=== PATIENT | female | born 1985 | race African-American/Black ===

== ENCOUNTER 2024-03-05 13:21 | Inpatient (IN) | payer MEDICAID ==
[~2024-03-05] VITALS: Ht 160 cm; Wt 65.8 kg
[2024-03-05] MEDS ORDERED: HALOPERIDOL 5 MG TABLET PO PRN (13:45)
[2024-03-05] MEDS ORDERED: LORazepam 2 MG TABLET PO PRN (13:45)
[2024-03-05] MEDS ORDERED: PNEUMOCOCCAL VACCINE POLYVALENT 0.5 ML SYRINGE [PPSV23] IM. ONE (17:15)
[2024-03-05 19:23] VITALS: BP 110/77; PULSE 82; RESP 18; TEMP 98.2; O2SAT 99
[2024-03-06 05:36] VITALS: BP 116/76; PULSE 67; RESP 17; TEMP 97.7; O2SAT 98
[2024-03-06 08:15] LABS: BASOPHILS % (AUTO) 0.5 % (0.0-2.0); EOSINOPHILS % (AUTO) 2.1 % (1.0-6.0); HEMATOCRIT 35.4 % (36-46); HEMOGLOBIN 11.4 g/dL (12.0-16.0); LYMPHOCYTES # (AUTO) 1.7 K/uL (1.0-4.8); LYMPHOCYTES % (AUTO) 34.2 % (22.0-44.0); MEAN CORPUSCULAR HEMOGLOBIN 29.6 pg (26.0-34.0); MEAN CORPUSCULAR HGB CONC 32.2 G/dL (31.0-37.0); MEAN CORPUSCULAR VOLUME 92 fL (80-100); MONOCYTES # (AUTO) 0.7 K/uL (0.1-1.0); MONOCYTES % (AUTO) 13.9 % (2.0-9.0); NEUTROPHILS # (AUTO) 2.5 K/uL (1.8-7.7); NEUTROPHILS % (AUTO) 49.3 % (40.0-70.0); PLATELET COUNT (AUTO) 291 K/uL (150-450); RED BLOOD CELL COUNT(AUTO) 3.85 MIL/uL (4.00-5.20); RED CELL DISTRIBUTION WIDTH 18.1 % (11.5-14.5)
[2024-03-06 08:22] VITALS: BP 116/78; PULSE 99; RESP 18; TEMP 98.2; O2SAT 100
[2024-03-06 08:42] LABS: ALANINE AMINOTRANSFERASE 17 U/L (12-78); ALBUMIN 3.9 g/dL (3.4-5.0); ALKALINE PHOSPHATASE 61 U/L (46-116); ANION GAP 9 mmol/L (8-16); ASPARTATE AMINOTRANSFERASE 16 U/L (15-37); BILIRUBIN,TOTAL 0.6 mg/dL (0.1-1.0); CALCIUM, TOTAL 9.5 mg/dL (8.8-10.5); CARBON DIOXIDE 26 mmol/L (22-29); CHLORIDE 105 mmol/L (98-107); CHOL/HDL RATIO 1.9 (3.9-5.7); CHOLESTEROL 163 mg/dL (131-200); CREATININE 0.67 mg/dL (0.60-1.30); FREE T4 (FREE THYROXINE) 1.03 ng/dL (0.76-1.46); GLOMERULAR FILTR. RATE CALC > 60 mL/min (>60); GLUCOSE,RANDOM 88 mg/dL (70-110); HDL CHOLESTEROL 85 mg/dL (40-60); LDL CHOL (CALC.) 73 mg/dL (0-130); POTASSIUM 3.9 mmol/L (3.5-5.1); SODIUM SERUM 140 mmol/L (136-145); THYROID STIMULATING HORMONE 1.69 uIU/mL (0.36-3.74); TOTAL PROTEIN, SERUM 8.3 g/dL (6.4-8.2); TRIGLYCERIDES 25 mg/dL (15-150); UREA NITROGEN, BLOOD 15 mg/dL (7-18)
[2024-03-06 08:48] LABS: VALPROIC ACID < 3 mcg/mL (50-100)
[2024-03-06 08:49] LABS: HEMOGLOBIN A1C 4.6 % (3.8-5.6)
[2024-03-06] MEDS ORDERED: DIVA-112 PO (11:18)
[2024-03-06] MEDS ORDERED: BUPR-49 PO (11:18)
[2024-03-06] MEDS ORDERED: OLAN10TA74 PO (11:18)
[2024-03-06] MEDS: DIVALPROEX SODIUM 500 MG DR TABLET PO SCH (11:30)
[2024-03-06] MEDS: BuPROPion HCL XL 150 MG ER TABLET PO SCH (12:37)
[2024-03-06] MEDS ORDERED: ALBUTEROL SULFATE HFA 90 MCG/PUFF 8 GM INHALER IH PRN (16:00)
[2024-03-06] MEDS ORDERED: PETROLATUM,WHITE 28 GM JELLY TP PRN (16:00)
[2024-03-06] MEDS ORDERED: MAG HYDROX/ALUMINUM HYD/SIMETH ES 30 ML SUSPENSION UDCUP PO PRN (16:00)
[2024-03-06] MEDS ORDERED: GuaiFENesin/D-METHORPHAN [SUGAR-FREE] 200-20MG/10 ML SYRUP UDCUP PO PRN (16:00)
[2024-03-06] MEDS ORDERED: MAGNESIUM HYDROXIDE SUSPENSION 30 ML UDCUP PO PRN (16:00)
[2024-03-06] MEDS ORDERED: LOPERAMIDE HCL 2 MG CAPSULE PO PRN (16:00)
[2024-03-06] MEDS ORDERED: ACETAMINOPHEN 325 MG TABLET PO PRN (16:00)
[2024-03-06] MEDS ORDERED: ONDANSETRON HCL 4 MG TABLET PO PRN (16:00)
[2024-03-06] MEDS ORDERED: NICOTINE 14 MG/24 HOUR PATCH TD PRN (16:00)
[2024-03-06] MEDS ORDERED: IBUPROFEN 400 MG TABLET PO PRN (16:00)
[2024-03-06] MEDS ORDERED: CloNIDine HCL 0.1 MG TABLET PO PRN (16:00)
[2024-03-06] MEDS: OLANZapine 10 MG TABLET PO SCH (21:00)
[2024-03-06 23:21] VITALS: BP 118/70; PULSE 94; RESP 16; TEMP 98; O2SAT 100
[2024-03-07 08:38] VITALS: BP 115/75; PULSE 76; RESP 17; TEMP 98.8; O2SAT 99
[2024-03-07 21:00] VITALS: BP 100/67; PULSE 82; RESP 18; TEMP 98.3; O2SAT 89
[2024-03-07] MEDS: DOCUSATE SODIUM 100 MG CAPSULE PO PRN (21:24)
[2024-03-08] MEDS: ZOLPIDEM TARTRATE 10 MG TABLET PO PRN (00:40)
[2024-03-08 10:24] VITALS: BP 111/67; PULSE 84; RESP 16; TEMP 97.5; O2SAT 96
[2024-03-08 20:24] VITALS: BP 112/66; PULSE 90; RESP 18; TEMP 98.8; O2SAT 99
[2024-03-09 08:11] VITALS: BP 107/66; PULSE 64; RESP 18; TEMP 97.9; O2SAT 97
[2024-03-09 20:29] VITALS: BP 109/69; PULSE 71; RESP 18; TEMP 97.1; O2SAT 100
[2024-03-10 13:39] VITALS: BP 111/70; PULSE 67; RESP 16; TEMP 96; O2SAT 94
[2024-03-10 21:10] VITALS: BP 120/84; PULSE 85; RESP 18; TEMP 97.6; O2SAT 98
[2024-03-11 08:38] VITALS: BP 110/70; PULSE 74; RESP 18; TEMP 98.1; O2SAT 98
[2024-03-11] MEDS ORDERED: DOCUSATE SODIUM 250 MG CAPSULE PO PRN (17:00)
[2024-03-11 20:49] VITALS: BP 110/62; PULSE 100; RESP 19; TEMP 97.8; O2SAT 99
[2024-03-12 09:07] VITALS: BP 121/71; PULSE 80; RESP 17; TEMP 97.7; O2SAT 100
[2024-03-12 20:16] VITALS: BP 122/75; RESP 16; TEMP 97.9; O2SAT 100
[2024-03-13 08:35] VITALS: BP 101/74; PULSE 79; RESP 17; TEMP 97.3; O2SAT 100
[2024-03-13 20:19] VITALS: BP 108/67; PULSE 66; RESP 18; TEMP 97.2; O2SAT 99
[2024-03-14 08:20] VITALS: BP 109/67; PULSE 94; RESP 18; TEMP 98.2; O2SAT 98
== END 2024-03-14 16:10 | disposition home or self-care (01) | DRG 750 ==
LOC: B2S 13:47
PROVIDERS: ADMIT Psychiatry & Neurology Psychiatry; ATTEND Psychiatry & Neurology Psychiatry
PROC: GZHZZZZ Group Psychotherapy (ICD-10-PCS; principal; 2024-03-06)
PROC: GZ51ZZZ Individual Psychotherapy, Behavioral (ICD-10-PCS; 2024-03-06)
DX: F25.1 Schizoaffective disorder, depressive type (principal); R45.851 Suicidal ideations; F41.9 Anxiety disorder, unspecified; Z59.00 Homelessness unspecified; G47.00 Insomnia, unspecified; D64.9 Anemia, unspecified; Z79.899 Other long term (current) drug therapy
CPT/HCPCS: 80053; 80061; 80164; 83036; 84439; 84443; 85025

== ENCOUNTER 2024-05-17 21:05 | Emergency (ER) | payer MEDICAID ==
[~2024-05-17] VITALS: Ht 160 cm; Wt 68.0 kg
[~2024-05-17 21:05] MED LIST: BUPR-49 PO; DIVA-112 PO; OLAN10TA74 PO
[2024-05-17 22:00] VITALS: TEMP 98
[2024-05-17 22:39] VITALS: BP 134/78; PULSE 74; RESP 16
[2024-05-17 23:09] LABS: BASOPHILS % (AUTO) 0.5 % (0.0-2.0); EOSINOPHILS % (AUTO) 1.6 % (1.0-6.0); HEMATOCRIT 35.1 % (36-46); LYMPHOCYTES # (AUTO) 1.9 K/uL (1.0-4.8); LYMPHOCYTES % (AUTO) 38.8 % (22.0-44.0); MEAN CORPUSCULAR HGB CONC 31.3 G/dL (31.0-37.0); MEAN CORPUSCULAR VOLUME 90 fL (80-100); MONOCYTES # (AUTO) 0.5 K/uL (0.1-1.0); MONOCYTES % (AUTO) 10.5 % (2.0-9.0); NEUTROPHILS # (AUTO) 2.4 K/uL (1.8-7.7); NEUTROPHILS % (AUTO) 48.6 % (40.0-70.0); PLATELET COUNT (AUTO) 266 K/uL (150-450); RED BLOOD CELL COUNT(AUTO) 3.92 MIL/uL (4.00-5.20); RED CELL DISTRIBUTION WIDTH 21.1 % (11.5-14.5); WHITE BLOOD COUNT (AUTO) 4.9 K/uL (4.5-11.0)
[2024-05-17 23:19] LABS: ANION GAP 4 mmol/L (8-16); CALCIUM, TOTAL 8.9 mg/dL (8.8-10.5); CARBON DIOXIDE 28 mmol/L (22-29); CHLORIDE 104 mmol/L (98-107); CREATININE 0.66 mg/dL (0.60-1.30); GLOMERULAR FILTR. RATE CALC > 60 mL/min (>60); GLUCOSE,RANDOM 90 mg/dL (70-110); POTASSIUM 3.6 mmol/L (3.5-5.1); SODIUM SERUM 136 mmol/L (136-145); UREA NITROGEN, BLOOD 13 mg/dL (7-18)
[2024-05-17 23:25] LABS: ALCOHOL, BLOOD (SERUM) < 3 mg/dL (0-10)
[2024-05-18] MEDS: LORazepam 1 MG TABLET PO ONE (01:14)
[2024-05-18] MEDS: OLANZapine 5 MG TABLET PO ONE (01:14)
== END 2024-05-18 02:06 | disposition home or self-care (01) ==
LOC: EMS 21:05
DX: F41.9 Anxiety disorder, unspecified (principal); F20.9 Schizophrenia, unspecified
CPT/HCPCS: 99283; 80048; 84703; 85025; 36415; G0480

== ENCOUNTER 2024-07-17 18:26 | Emergency (ER) | payer MEDICAID ==
[~2024-07-17] VITALS: Ht 154.9 cm; Wt 63.6 kg
[2024-07-17 18:48] VITALS: TEMP 98.1
[2024-07-17] MEDS ORDERED: IBUP-1492 PO (22:38)
[2024-07-17] MEDS: IBUPROFEN 600 MG TABLET PO ONE (22:44)
[2024-07-17 22:45] VITALS: BP 112/67; PULSE 77; RESP 15; O2SAT 97
== END 2024-07-17 23:18 | disposition home or self-care (01) ==
LOC: EMS 18:26
DX: S63.502A Unspecified sprain of left wrist, initial encounter (principal); X50.9XXA Other and unspecified overexertion or strenuous movements or postures, initial encounter; Y93.89 Activity, other specified; Y92.89 Other specified places as the place of occurrence of the external cause; Y99.8 Other external cause status
CPT/HCPCS: 99283

== ENCOUNTER 2024-07-26 20:04 | Emergency (ER) | payer MEDICAID ==
[~2024-07-26] VITALS: Ht 160 cm; Wt 70.5 kg
[~2024-07-26 20:04] MED LIST changes: +IBUP-1492 PO
[2024-07-26 20:08] VITALS: BP 115/66; PULSE 76; RESP 18; TEMP 98.7; O2SAT 100
[2024-07-26 20:20] LABS: COVID AG,FIA SOURCE NASAL SWAB
[2024-07-26 20:42] LABS: SARS-COV2 (COVID) ANTIGEN,FIA Negative (Negative)
[2024-07-26 20:44] LABS: INFLUENZA TYPE A NEGATIVE FOR TYPE A (NEGATIVE); INFLUENZA TYPE B NEGATIVE FOR TYPE B (NEGATIVE)
== END 2024-07-26 21:09 | disposition home or self-care (01) ==
LOC: EMS 20:04
DX: J06.9 Acute upper respiratory infection, unspecified (principal); R53.83 Other fatigue; R09.81 Nasal congestion; Z79.899 Other long term (current) drug therapy; Z20.822 Contact with and (suspected) exposure to COVID-19
CPT/HCPCS: 87804; 99283

== ENCOUNTER 2024-08-30 04:34 | Emergency (ER) | payer MEDICAID ==
[~2024-08-30] VITALS: Ht 165.1 cm; Wt 70.5 kg
[2024-08-30 05:04] VITALS: TEMP 98.1
[2024-08-30 05:20] LABS: BASOPHILS % (AUTO) 1.1 % (0.0-2.0); EOSINOPHILS % (AUTO) 1.3 % (1.0-6.0); HEMATOCRIT 35.7 % (36-46); HEMOGLOBIN 11.3 g/dL (12.0-16.0); LYMPHOCYTES # (AUTO) 1.3 K/uL (1.0-4.8); LYMPHOCYTES % (AUTO) 32.5 % (22.0-44.0); MEAN CORPUSCULAR HEMOGLOBIN 28.8 pg (26.0-34.0); MEAN CORPUSCULAR HGB CONC 31.8 G/dL (31.0-37.0); MEAN CORPUSCULAR VOLUME 91 fL (80-100); MONOCYTES # (AUTO) 0.5 K/uL (0.1-1.0); MONOCYTES % (AUTO) 11.9 % (2.0-9.0); NEUTROPHILS # (AUTO) 2.1 K/uL (1.8-7.7); NEUTROPHILS % (AUTO) 53.2 % (40.0-70.0); PLATELET COUNT (AUTO) 292 K/uL (150-450); RED BLOOD CELL COUNT(AUTO) 3.93 MIL/uL (4.00-5.20); RED CELL DISTRIBUTION WIDTH 16.8 % (11.5-14.5)
[2024-08-30 05:31] LABS: ANION GAP 7 mmol/L (8-16); CALCIUM, TOTAL 9.3 mg/dL (8.8-10.5); CARBON DIOXIDE 25 mmol/L (22-29); CHLORIDE 104 mmol/L (98-107); CREATININE 0.76 mg/dL (0.60-1.30); GLOMERULAR FILTR. RATE CALC > 60 mL/min (>60); GLUCOSE,RANDOM 96 mg/dL (70-110); POTASSIUM 4.1 mmol/L (3.5-5.1); SODIUM SERUM 136 mmol/L (136-145); UREA NITROGEN, BLOOD 20 mg/dL (7-18)
[2024-08-30 05:43] LABS: ALCOHOL, BLOOD (SERUM) < 3 mg/dL (0-10)
[2024-08-30] MEDS: LORazepam 1 MG TABLET PO ONE (06:01)
[2024-08-30] MEDS: HALOPERIDOL 5 MG TABLET PO ONE (06:01)
[2024-08-30] MEDS ORDERED: BUPR-49 PO (06:45)
[2024-08-30 07:19] VITALS: BP 118/77; PULSE 71; RESP 15; O2SAT 99
== END 2024-08-30 07:19 | disposition home or self-care (01) ==
LOC: EMS 04:35
DX: F41.9 Anxiety disorder, unspecified (principal); F32.A Depression, unspecified; Z79.899 Other long term (current) drug therapy
CPT/HCPCS: 99283; 80048; 84703; 85025; 36415; G0480

== ENCOUNTER 2024-09-05 07:18 | Emergency (ER) | payer MEDICAID ==
[~2024-09-05] VITALS: Ht 162.6 cm; Wt 70.5 kg
[2024-09-05 07:24] VITALS: TEMP 97.6
[2024-09-05] MEDS: LORazepam 1 MG TABLET PO ONE (07:43)
[2024-09-05] MEDS: HydrOXYzine HCL 25 MG TABLET PO ONE (07:43)
[2024-09-05 07:57] LABS: BASOPHILS % (AUTO) 0.6 % (0.0-2.0); EOSINOPHILS % (AUTO) 1.1 % (1.0-6.0); HEMATOCRIT 31.9 % (36-46); HEMOGLOBIN 10.3 g/dL (12.0-16.0); LYMPHOCYTES # (AUTO) 1.2 K/uL (1.0-4.8); LYMPHOCYTES % (AUTO) 23.8 % (22.0-44.0); MEAN CORPUSCULAR HEMOGLOBIN 29.1 pg (26.0-34.0); MEAN CORPUSCULAR HGB CONC 32.2 G/dL (31.0-37.0); MEAN CORPUSCULAR VOLUME 90 fL (80-100); MONOCYTES # (AUTO) 0.5 K/uL (0.1-1.0); MONOCYTES % (AUTO) 10.7 % (2.0-9.0); NEUTROPHILS # (AUTO) 3.1 K/uL (1.8-7.7); NEUTROPHILS % (AUTO) 63.8 % (40.0-70.0); PLATELET COUNT (AUTO) 275 K/uL (150-450); RED BLOOD CELL COUNT(AUTO) 3.53 MIL/uL (4.00-5.20); RED CELL DISTRIBUTION WIDTH 17.1 % (11.5-14.5); WHITE BLOOD COUNT (AUTO) 4.9 K/uL (4.5-11.0)
[2024-09-05 08:10] LABS: ANION GAP 8 mmol/L (8-16); CALCIUM, TOTAL 8.7 mg/dL (8.8-10.5); CARBON DIOXIDE 24 mmol/L (22-29); CHLORIDE 107 mmol/L (98-107); CREATININE 0.72 mg/dL (0.60-1.30); GLOMERULAR FILTR. RATE CALC > 60 mL/min (>60); GLUCOSE,RANDOM 95 mg/dL (70-110); POTASSIUM 3.4 mmol/L (3.5-5.1); SODIUM SERUM 139 mmol/L (136-145); UREA NITROGEN, BLOOD 15 mg/dL (7-18)
[2024-09-05 08:16] LABS: ALANINE AMINOTRANSFERASE 26 U/L (12-78); ALBUMIN 3.1 g/dL (3.4-5.0); ALKALINE PHOSPHATASE 55 U/L (46-116); ASPARTATE AMINOTRANSFERASE 18 U/L (15-37); BILIRUBIN,TOTAL 0.2 mg/dL (0.1-1.0); LIPASE 49 U/L (16-77); TOTAL PROTEIN, SERUM 6.9 g/dL (6.4-8.2)
[2024-09-05 08:20] LABS: TROPONIN I-HIGH SENSITIVITY Less Than 4 ng/L (<51)
[2024-09-05] MEDS: POTASSIUM CHLORIDE 20 MEQ ER TABLET PO ONE (09:02)
[2024-09-05] MEDS: DICYCLOMINE HCL 10 MG CAPSULE PO ONE (09:05)
[2024-09-05 10:27] VITALS: BP 124/85; PULSE 82; RESP 16; O2SAT 97
== END 2024-09-05 10:28 | disposition home or self-care (01) ==
LOC: EMS 07:26
DX: L29.9 Pruritus, unspecified (principal); F41.9 Anxiety disorder, unspecified; E87.6 Hypokalemia; F20.9 Schizophrenia, unspecified; Z79.899 Other long term (current) drug therapy
CPT/HCPCS: 80053; 83690; 84484; 84703; 85025; 93005; 99284

== ENCOUNTER 2024-09-08 07:18 | Emergency (ER) | payer MEDICAID ==
[~2024-09-08] VITALS: Ht 157.5 cm; Wt 79.0 kg
[2024-09-08 07:26] VITALS: BP 134/92; PULSE 84; RESP 18; TEMP 98; O2SAT 100
[2024-09-08] MEDS ORDERED: SERT-158 PO (07:48)
[2024-09-08] MEDS: SERTRALINE HCL 50 MG TABLET PO ONE (08:34)
[2024-09-08] MEDS: LORazepam 1 MG TABLET PO ONE (08:34)
== END 2024-09-08 08:57 | disposition home or self-care (01) ==
LOC: EMS 07:18
DX: F41.9 Anxiety disorder, unspecified (principal); F32.A Depression, unspecified
CPT/HCPCS: 99284; Z7502; Z7610

== ENCOUNTER 2024-09-11 06:59 | Emergency (ER) | payer MEDICAID ==
[~2024-09-11] VITALS: Ht 167.6 cm; Wt 77.2 kg
[~2024-09-11 06:59] MED LIST changes: -DIVA-112 PO; -IBUP-1492 PO; -OLAN10TA74 PO; +SERT-158 PO
[2024-09-11 10:34] LABS: BASOPHILS % (AUTO) 0.9 % (0.0-2.0); EOSINOPHILS % (AUTO) 1.3 % (1.0-6.0); HEMATOCRIT 36.1 % (36-46); HEMOGLOBIN 11.2 g/dL (12.0-16.0); LYMPHOCYTES % (AUTO) 40.3 % (22.0-44.0); MEAN CORPUSCULAR HEMOGLOBIN 28.1 pg (26.0-34.0); MEAN CORPUSCULAR VOLUME 91 fL (80-100); MONOCYTES # (AUTO) 0.6 K/uL (0.1-1.0); NEUTROPHILS # (AUTO) 2.3 K/uL (1.8-7.7); NEUTROPHILS % (AUTO) 45.5 % (40.0-70.0); PLATELET COUNT (AUTO) 327 K/uL (150-450); RED BLOOD CELL COUNT(AUTO) 3.99 MIL/uL (4.00-5.20); RED CELL DISTRIBUTION WIDTH 16.7 % (11.5-14.5); WHITE BLOOD COUNT (AUTO) 5.1 K/uL (4.5-11.0)
[2024-09-11 10:44] LABS: ANION GAP 9 mmol/L (8-16); CALCIUM, TOTAL 8.9 mg/dL (8.8-10.5); CARBON DIOXIDE 23 mmol/L (22-29); CHLORIDE 105 mmol/L (98-107); CREATININE 0.69 mg/dL (0.60-1.30); GLOMERULAR FILTR. RATE CALC > 60 mL/min (>60); GLUCOSE,RANDOM 87 mg/dL (70-110); POTASSIUM 3.8 mmol/L (3.5-5.1); SODIUM SERUM 137 mmol/L (136-145); UREA NITROGEN, BLOOD 14 mg/dL (7-18)
[2024-09-11 10:54] LABS: COVID AG,FIA SOURCE NPH
[2024-09-11 10:58] LABS: ALCOHOL, BLOOD (SERUM) < 3 mg/dL (0-10)
[2024-09-11 10:59] LABS: HCG,QUANTITATIVE < 1 mIU/mL (0-6); THYROID STIMULATING HORMONE 2.21 uIU/mL (0.36-3.74)
[2024-09-11 11:19] LABS: SARS-COV2 (COVID) ANTIGEN,FIA Negative (Negative)
[2024-09-11 13:02] LABS: APPEARANCE,URINE CLEAR (CLEAR); BILIRUBIN,URINE NEGATIVE (NEGATIVE); COLOR,URINE LIGHT YELLOW (YELLOW); GLUCOSE, URINE (UA) NEGATIVE (NEGATIVE); KETONES,URINE NEGATIVE (NEGATIVE); LEUKOCYTE ESTERASE ,URINE NEGATIVE (NEGATIVE); NITRATE,URINE NEGATIVE (NEGATIVE); OCCULT BLOOD,URINE NEGATIVE (NEGATIVE); PROTEIN,URINE TRACE mg/dL (NEGATIVE); SPECIFIC GRAVITIY, URINE 1.034 (1.003-1.030); UROBILINOGEN,URINE <=1.0 mg/dL (<=1.0)
[2024-09-11 13:10] LABS: ALCOHOL, URINE DRUG SCREEN NEGATIVE (NEGATIVE); AMPHET/METH SCREEN,URINE NEGATIVE (NEGATIVE); BARBITURATE SCREEN, URINE NEGATIVE (NEGATIVE); BENZODIAZEPINES SCREEN,URINE NEGATIVE (NEGATIVE); CANNABINOID SCREEN,URINE NEGATIVE (NEGATIVE); COCAINE SCREEN,URINE NEGATIVE (NEGATIVE); METHADONE SCREEN, URINE NEGATIVE (NEGATIVE); OPIATE SCREEN,URINE NEGATIVE (NEGATIVE); PHENCYCLIDINE SCREEN,URINE NEGATIVE (NEGATIVE)
[2024-09-11 13:52] VITALS: BP 112/74; PULSE 74; RESP 17; TEMP 97.5; O2SAT 99
== END 2024-09-11 14:12 | disposition home or self-care (01) ==
LOC: EMS 07:02
DX: F41.9 Anxiety disorder, unspecified (principal); F32.A Depression, unspecified; Z20.822 Contact with and (suspected) exposure to COVID-19
CPT/HCPCS: 99283; 87426; 80048; 84443; 84702; 85025; 36415; 80307; 81003; G0480

== ENCOUNTER 2024-10-27 06:08 | Emergency (ER) | payer MEDICAID ==
[~2024-10-27] VITALS: Ht 162.6 cm; Wt 75.0 kg
[2024-10-27 07:59] LABS: BASOPHILS % (AUTO) 0.7 % (0.0-2.0); EOSINOPHILS % (AUTO) 0.8 % (1.0-6.0); HEMATOCRIT 33.9 % (36-46); HEMOGLOBIN 10.8 g/dL (12.0-16.0); LYMPHOCYTES # (AUTO) 1.2 K/uL (1.0-4.8); LYMPHOCYTES % (AUTO) 30.1 % (22.0-44.0); MEAN CORPUSCULAR HEMOGLOBIN 28.4 pg (26.0-34.0); MEAN CORPUSCULAR HGB CONC 31.8 G/dL (31.0-37.0); MEAN CORPUSCULAR VOLUME 90 fL (80-100); MONOCYTES # (AUTO) 0.4 K/uL (0.1-1.0); MONOCYTES % (AUTO) 10.3 % (2.0-9.0); NEUTROPHILS # (AUTO) 2.3 K/uL (1.8-7.7); NEUTROPHILS % (AUTO) 58.1 % (40.0-70.0); PLATELET COUNT (AUTO) 330 K/uL (150-450); RED BLOOD CELL COUNT(AUTO) 3.79 MIL/uL (4.00-5.20)
[2024-10-27 08:17] LABS: ANION GAP 8 mmol/L (8-16); CALCIUM, TOTAL 9.1 mg/dL (8.8-10.5); CARBON DIOXIDE 28 mmol/L (22-29); CHLORIDE 101 mmol/L (98-107); CREATININE 0.68 mg/dL (0.60-1.30); GLOMERULAR FILTR. RATE CALC > 60 mL/min (>60); GLUCOSE,RANDOM 90 mg/dL (70-110); POTASSIUM 3.8 mmol/L (3.5-5.1); SODIUM SERUM 137 mmol/L (136-145); UREA NITROGEN, BLOOD 7 mg/dL (7-18)
[2024-10-27 08:21] LABS: ALCOHOL, BLOOD (SERUM) < 3 mg/dL (0-10)
[2024-10-27 12:15] LABS: COVID AG,FIA SOURCE NASAL SWAB
[2024-10-27 12:21] VITALS: BP 132/83; PULSE 84; RESP 18; TEMP 97.8; O2SAT 100
[2024-10-27 12:27] LABS: APPEARANCE,URINE CLEAR (CLEAR); BILIRUBIN,URINE NEGATIVE (NEGATIVE); COLOR,URINE LIGHT YELLOW (YELLOW); GLUCOSE, URINE (UA) NEGATIVE (NEGATIVE); KETONES,URINE NEGATIVE (NEGATIVE); LEUKOCYTE ESTERASE ,URINE NEGATIVE (NEGATIVE); NITRATE,URINE NEGATIVE (NEGATIVE); OCCULT BLOOD,URINE NEGATIVE (NEGATIVE); PROTEIN,URINE NEGATIVE (NEGATIVE); SPECIFIC GRAVITIY, URINE 1.021 (1.003-1.030); UROBILINOGEN,URINE <=1.0 mg/dL (<=1.0)
[2024-10-27 12:33] LABS: ALCOHOL, URINE DRUG SCREEN NEGATIVE (NEGATIVE); AMPHET/METH SCREEN,URINE NEGATIVE (NEGATIVE); BARBITURATE SCREEN, URINE NEGATIVE (NEGATIVE); BENZODIAZEPINES SCREEN,URINE NEGATIVE (NEGATIVE); CANNABINOID SCREEN,URINE NEGATIVE (NEGATIVE); COCAINE SCREEN,URINE NEGATIVE (NEGATIVE); METHADONE SCREEN, URINE NEGATIVE (NEGATIVE); OPIATE SCREEN,URINE NEGATIVE (NEGATIVE); PHENCYCLIDINE SCREEN,URINE NEGATIVE (NEGATIVE)
[2024-10-27 12:55] LABS: SARS-COV2 (COVID) ANTIGEN,FIA Negative (Negative)
== END 2024-10-27 13:21 | disposition home or self-care (01) ==
LOC: EMS 06:10
DX: F25.1 Schizoaffective disorder, depressive type (principal); F41.9 Anxiety disorder, unspecified; Z79.899 Other long term (current) drug therapy; Z20.822 Contact with and (suspected) exposure to COVID-19
CPT/HCPCS: 99283; 87426; 80048; 85025; 36415; 80307; 81003; G0480

== ENCOUNTER 2025-02-11 15:31 | Emergency (ER) | payer MEDICAID | END 2025-02-11 15:38 | disposition left against medical advice (07) | LOC: EMS 15:32 | DX: F41.9 Anxiety disorder, unspecified (principal); Z53.21 Procedure and treatment not carried out due to patient leaving prior to being seen by health care provider ==

== ENCOUNTER 2025-04-06 22:19 | Emergency (ER) | payer MEDICAID ==
[~2025-04-06] VITALS: Ht 162.6 cm; Wt 72.7 kg
[2025-04-07] MEDS: DiphenhydrAMINE HCL 25 MG CAPSULE PO ONE (01:10)
[2025-04-07] MEDS: ACETAMINOPHEN 500 MG TABLET PO ONE (01:10)
[2025-04-07] MEDS: IBUPROFEN 400 MG TABLET PO ONE (01:11)
[2025-04-07] MEDS: METOCLOPRAMIDE HCL 10 MG TABLET PO ONE (01:11)
[2025-04-07 05:36] VITALS: BP 124/68; PULSE 70; RESP 16; TEMP 97.3; O2SAT 98
== END 2025-04-07 05:50 | disposition home or self-care (01) ==
LOC: EMS 23:41
DX: R51.9 Headache, unspecified (principal); F32.A Depression, unspecified; F41.9 Anxiety disorder, unspecified; G40.909 Epilepsy, unspecified, not intractable, without status epilepticus; Z79.899 Other long term (current) drug therapy
CPT/HCPCS: 99284; Z7502; Z7610

== ENCOUNTER 2025-04-16 02:18 | Emergency (ER) | payer MEDICAID ==
[~2025-04-16] VITALS: Ht 160 cm; Wt 77.3 kg
[2025-04-16 02:40] VITALS: BP 116/75; PULSE 87; RESP 18; O2SAT 99
== END 2025-04-16 06:09 | disposition home or self-care (01) ==
LOC: EMS 02:18
DX: F41.9 Anxiety disorder, unspecified (principal); F32.A Depression, unspecified; G40.909 Epilepsy, unspecified, not intractable, without status epilepticus; Z79.899 Other long term (current) drug therapy
CPT/HCPCS: 99283

== ENCOUNTER 2025-04-24 23:52 | Emergency (ER) | payer MEDICAID ==
[~2025-04-24] VITALS: Ht 162.6 cm; Wt 68.2 kg
[2025-04-25 00:16] VITALS: TEMP 98.4
[2025-04-25 01:15] VITALS: BP 123/78; PULSE 80; RESP 18; O2SAT 100
[2025-04-25] MEDS ORDERED: SERT-158 PO (02:26)
[2025-04-25] MEDS: ACETAMINOPHEN 325 MG TABLET PO ONE (02:26)
[2025-04-25] MEDS ORDERED: BUPR-49 PO (02:26)
== END 2025-04-25 03:11 | disposition home or self-care (01) ==
LOC: EMS 23:56
DX: M79.672 Pain in left foot (principal); M79.671 Pain in right foot; F41.9 Anxiety disorder, unspecified; F32.A Depression, unspecified; G40.909 Epilepsy, unspecified, not intractable, without status epilepticus; Z79.899 Other long term (current) drug therapy; Z76.0 Encounter for issue of repeat prescription
CPT/HCPCS: 99283

== ENCOUNTER 2025-04-26 22:12 | Emergency (ER) | payer MEDICAID ==
[~2025-04-26] VITALS: Ht 160 cm; Wt 76.4 kg
[2025-04-26 22:52] VITALS: BP 115/68; PULSE 88; RESP 18; TEMP 97.5; O2SAT 100
[2025-04-27] MEDS ORDERED: IBUP-1506 PO (05:13)
[2025-04-27] MEDS ORDERED: ACET-3385 PO (05:13)
[2025-04-27] MEDS: ACETAMINOPHEN 500 MG TABLET PO ONE (05:33)
== END 2025-04-27 06:00 | disposition home or self-care (01) ==
LOC: EMS 22:13
DX: H92.03 Otalgia, bilateral (principal); F41.9 Anxiety disorder, unspecified; F32.A Depression, unspecified; M79.672 Pain in left foot; M79.671 Pain in right foot; Z79.899 Other long term (current) drug therapy; Z59.00 Homelessness unspecified
CPT/HCPCS: 99282; Z7502; Z7610